=== PATIENT | female | born 1990 | race Caucasian/White ===

== ENCOUNTER 2019-04-11 00:56 | Inpatient (IN) | payer OTHER ==
[2019-04-11 01:24] VITALS: BMI 23.4
[2019-04-11] MEDS ORDERED: Ondansetron PF 4 MG/2 ML Vial IVP PRN ×2 (01:30→02:58)
[2019-04-11] MEDS ORDERED: Ibuprofen 800 MG TAB PO PRN (01:30)
[2019-04-11] MEDS ORDERED: hydrALAZINE 20 MG/ML VIAL SLOW IVP PRN ×2 (01:30→08:05)
[2019-04-11] MEDS ORDERED: Lidocaine 1% (PF) 30 ML VIAL SC PRN (01:30)
[2019-04-11] MEDS ORDERED: NS w/ Oxytocin 10 units 500 ML IV SCH (01:30)
[2019-04-11] MEDS ORDERED: NS / Oxytocin 40 units/1000ml 1,000 ML IV PRN (01:30)
[2019-04-11] MEDS ORDERED: Promethazine HCl 25 MG/ML VIAL IM PRN ×2 (01:30→02:58)
[2019-04-11] MEDS ORDERED: Butorphanol Tartrate 1 MG/ML VIAL SLOW IVP PRN (01:30)
[2019-04-11] MEDS ORDERED: Acetaminophen/Codeine 30-300mg Tablet PO PRN ×2 (01:30)
[2019-04-11] MEDS ORDERED: Lactated Ringer's 1,000 ML IV SCH (01:30)
[2019-04-11] MEDS ORDERED: Fentanyl 4 mcg/Bup 0.1% Cadd 100 ML ONE (02:22)
[2019-04-11 02:24] LABS: Hemoglobin 12.5 g/dL (12.0-16.0); Mean Corpuscular HGB CONC 35.2 g/dL (32.0-36.0); Mean Corpuscular Hemoglobin 33.4 pg (27.0-31.0); Mean Platelet Volume 8.3 fL (7.4-10.4); Platelet Count 218 thou/uL (130-400); RBC Distribution Width 11.2 % (11.5-14.5); Red Blood Cell (RBC) Count 3.75 mill/uL (4.20-5.40); White Blood Cell (WBC) Count 10.4 thou/uL (4.8-10.8)
[2019-04-11] MEDS: Lactated Ringer's 1,000 ML IV SCH (02:33)
[2019-04-11] MEDS ORDERED: Lactated Ringer's 500 ML IV PRN (02:58)
[2019-04-11] MEDS ORDERED: Naloxone HCl 0.4 mg/ml Vial IVP PRN ×2 (02:58)
[2019-04-11] MEDS ORDERED: Acetaminophen 325 MG TAB PO PRN (02:58)
[2019-04-11] MEDS ORDERED: ePHEDrine/0.9% NaCl/PF SYRINGE 50 mg/10 ml SLOW IVP PRN (02:58)
[2019-04-11] MEDS ORDERED: diphenhydrAMINE 50 MG/ML VIAL IVP PRN (02:58)
[2019-04-11] MEDS ORDERED: Communication Order-Pharmacy FS SCH (03:00)
[2019-04-11] MEDS ORDERED: Fentanyl 4 mcg/Bupivacaine 0.1% Cassette 100 ML EPIDURAL SCH (03:00)
[2019-04-11 03:04] LABS: HBSAg Index 0.23 S/CO (0-0.99); Hep B Surf Ag Non-Reactive S/CO (NonReactive)
[2019-04-11 04:36] LABS: Syphilis Antibody Nonreactive (Nonreactive); Syphilis Antibody Index 0.09 S/CO (<1.00 Non-Reactive)
[2019-04-11] MEDS ORDERED: Lidocaine 1% (PF) 30 ML VIAL ONE (06:18)
[2019-04-11] MEDS ORDERED: NS / Oxytocin 40 units/1000ml 1,000 ML ONE (06:18)
--- NOTE | 2019-04-11 08:04 | PDOC.OPDEL ---
OB Operative/Delivery Note Delivery Dr/Surgeon: libby Pre-Delivery Diagnosis: active labor Procedure/Post Delivery Dx: spontaneous vaginal delivery Weeks gestation: 39 Anesthesia: epidural - Findings A Sex: male - 1 min: 9 - 5 min: 9 - Additional Findings/Plan Placenta delivered: spontaneous Repaired Obstetrical Laceration: 2nd degree Estimated blood loss: 350ml Post delivery plan: routine recovery
[2019-04-11] MEDS ORDERED: Bisacodyl 10 MG SUPP PR PRN (08:05)
[2019-04-11] MEDS ORDERED: traMADol HCl 50 MG TAB PO PRN (08:05)
[2019-04-11] MEDS ORDERED: Adacel (T-DAP) 0.5 ML SYRINGE IM ONE (08:05)
[2019-04-11] MEDS ORDERED: Lanolin Ointment 7 GM TUBE TOP PRN (08:05)
[2019-04-11] MEDS ORDERED: Milk Of Magnesia 30 ML UDCUP PO PRN (08:05)
[2019-04-11] MEDS ORDERED: Preparation H Ointment 28 GM TUBE PR PRN (08:05)
[2019-04-11] MEDS ORDERED: NS / Oxytocin 40 units/1000ml 1,000 ML IV SCH (08:15)
[2019-04-11] MEDS ORDERED: Bupivacaine HCl 0.5%/Epinephrine 1:200,000/PF 30 ml Vial ONE (09:00)
[2019-04-11] MEDS: Prenatal Vitamin 1 TAB PO SCH (10:56)
[2019-04-11] MEDS: Ferrous Sulfate 325 MG TAB PO SCH (10:56)
[2019-04-11] MEDS: Docusate Calcium (SURFAK) 240 MG CAP PO SCH ×2 (10:56→22:02)
[2019-04-11] MEDS: Ibuprofen 800 MG TAB PO SCH ×2 (11:18→22:03)
[2019-04-11] MEDS ORDERED: Benzocaine-Menthol 82.5 ML CAN TOP PRN (21:31)
[2019-04-12] MEDS: Ibuprofen 800 MG TAB PO SCH ×3 (06:04→21:10)
--- NOTE | 2019-04-12 08:07 | PDOC.PP ---
Post Progress Note Post Day #: 1 PO intake tolerated: yes Flatus: yes Ambulation: yes Vital Signs (12 hours) Temp Pulse Resp BP 04/12/19 04:20 97.8 F 59 L 18 119/66 04/12/19 01:26 98.0 F 54 L 18 133/74 Weight Weight 154 lb Result Diagrams: 04/11/19 02:12 Additional Labs: Post Labs Blood Type O POSITIVE 04/11/19 04:22 Hep Bs Antigen Non-Reactive S/CO (NonReactive) 04/11/19 02:12 - Assessment/Plan Post day 1-primipara.. Doing well. D/c in AM..
[2019-04-12] MEDS: Prenatal Vitamin 1 TAB PO SCH (08:50)
[2019-04-12] MEDS: Docusate Calcium (SURFAK) 240 MG CAP PO SCH ×2 (08:50→21:10)
[2019-04-12] MEDS: Ferrous Sulfate 325 MG TAB PO SCH ×2 (08:51→18:27)
[2019-04-12] MEDS: Lactated Ringer's 1,000 ML IV SCH (13:38)
[2019-04-13] MEDS: Ibuprofen 800 MG TAB PO SCH (05:50)
--- NOTE | 2019-04-13 08:04 | PDOC.PP ---
Post Progress Note Post Day #: 2 PO intake tolerated: yes Flatus: yes Ambulation: yes Vital Signs (12 hours) Temp Pulse Resp BP Pulse Ox 04/13/19 00:00 97.7 F 56 L 18 135/65 98 Weight Weight 154 lb Result Diagrams: 04/11/19 02:12 Additional Labs: Post Labs Blood Type O POSITIVE 04/11/19 04:22 Hep Bs Antigen Non-Reactive S/CO (NonReactive) 04/11/19 02:12 - Assessment/Plan Post day 2 ...Doing well. Discharge home. Follow up in 6 weeks.
[2019-04-13 08:13] VITALS: BP 104/60; TEMP 98.3
[2019-04-13] MEDS: Docusate Calcium (SURFAK) 240 MG CAP PO SCH (08:45)
[2019-04-13] MEDS: Prenatal Vitamin 1 TAB PO SCH (08:45)
[2019-04-13] MEDS: Ferrous Sulfate 325 MG TAB PO SCH (08:45)
== END 2019-04-13 11:22 | disposition home or self-care (01) | DRG 807 ==
LOC: L&D/OP 00:56 → L&D 01:35 → 3SW 10:12
PROVIDERS: ADMIT Obstetrics & Gynecology; ATTEND Obstetrics & Gynecology
PROC: 10E0XZZ Delivery of Products of Conception, External Approach (ICD-10-PCS; principal; 2019-04-11)
PROC: 0KQM0ZZ Repair Perineum Muscle, Open Approach (ICD-10-PCS; 2019-04-11)
DX: O70.1 Second degree perineal laceration during delivery (principal); Z37.0 Single live birth; Z3A.39 39 weeks gestation of pregnancy
CPT/HCPCS: 36415; 51702; 85027; 86780; 86850; 86900; 86901; 87340; 99285; J0670; J2001